=== PATIENT | male | born 1950 | race Caucasian/White ===

== ENCOUNTER 2021-11-11 10:44 | Inpatient (IN) ==
[2021-11-11] MEDS: levETIRAcetam 250 MG TABLET PO SCH (21:08)
[2021-11-11] MEDS: *HR* Metformin 500 MG TABLET PO SCH (21:08)
[2021-11-12 07:59] LABS: Basophils % 0.3 %; Eosinophils # 0.2 K/mcL (0.0-0.6); Eosinophils % 2.3 %; Hematocrit 43.1 % (37.5-50.1); Hemoglobin 14.5 g/dL (12.9-16.9); Immature Granulocytes % 1.2 % (0-4); Lymphocytes # 1.5 K/mcL (0.6-4.6); Lymphocytes % 16.7 %; Mean Corpuscular HGB Conc 33.6 g/dL (31.6-35.5); Mean Corpuscular Hemoglobin 30.1 pg (28.0-33.3); Mean Corpuscular Volume 89.6 fL (83.0-100.0); Mean Platelet Volume 9.8 fL (9.4-12.4); Monocytes # 0.6 K/mcL (0.0-1.3); Monocytes % 7.1 %; Neutrophils # 6.5 K/mcL (1.6-8.9); Platelet Count 250 K/mcL (140-400); Red Blood Count 4.81 M/mcL (4.19-5.50); Segmented Neutrophils % 72.4 %
[2021-11-12 08:16] LABS: BUN/Creatinine Ratio 20 (6-26); Blood Urea Nitrogen 20 mg/dL (8-23); Calcium 8.4 mg/dL (8.6-10.3); Carbon Dioxide 28 mEq/L (23-29); Chloride 101 mEq/L (98-107); Glucose 82 mg/dL (70-105); Osmolality,Calculated 288 (280-300); Potassium 3.9 mEq/L (3.5-5.1); Sodium 138 mEq/L (136-145); eGFR For African Americans > 60 (> 60); eGFR For Non-African Americans > 60 (> 60)
[2021-11-12] MEDS: levETIRAcetam 250 MG TABLET PO SCH ×2 (09:46→21:20)
[2021-11-12] MEDS: lisinopriL 10 MG TABLET PO SCH ×2 (09:46→09:47)
[2021-11-12] MEDS: Cyanocobalamin (B-12) 1,000 MCG TABLET PO SCH (09:46)
[2021-11-12] MEDS: Aspirin Enteric Coated 81 MG Tablet PO SCH (09:46)
[2021-11-12] MEDS: NIFEdipine XL (24 HR) 30 MG TAB.ER.24 PO SCH (09:47)
[2021-11-12] MEDS: *HR* Metformin 500 MG TABLET PO SCH ×2 (09:47→21:20)
[2021-11-12] MEDS: Cholecalciferol (D-3) 1,000 UNIT (25MCG) TABLET PO SCH (09:49)
[2021-11-13] MEDS: *HR* Enoxaparin 40 MG/0.4 ML SYRINGE SQ SCH (06:14)
[2021-11-13] MEDS: Megestrol Acetate 400 MG/10 ML UDC PO SCH (09:12)
[2021-11-13] MEDS: Multivit/Ca/Min/Fe/FA 1 TAB TABLET PO SCH (09:13)
[2021-11-13] MEDS: NIFEdipine XL (24 HR) 30 MG TAB.ER.24 PO SCH (09:13)
[2021-11-13] MEDS: Aspirin Enteric Coated 81 MG Tablet PO SCH (09:13)
[2021-11-13] MEDS: *HR* Metformin 500 MG TABLET PO SCH ×2 (09:13→20:57)
[2021-11-13] MEDS: levETIRAcetam 250 MG TABLET PO SCH ×2 (09:13→20:57)
[2021-11-13] MEDS: Cyanocobalamin (B-12) 1,000 MCG TABLET PO SCH (09:14)
[2021-11-13] MEDS: Cholecalciferol (D-3) 1,000 UNIT (25MCG) TABLET PO SCH (09:14)
[2021-11-14] MEDS: *HR* Enoxaparin 40 MG/0.4 ML SYRINGE SQ SCH (05:56)
[2021-11-14] MEDS: NIFEdipine XL (24 HR) 30 MG TAB.ER.24 PO SCH (10:07)
[2021-11-14] MEDS: Aspirin Enteric Coated 81 MG Tablet PO SCH (10:07)
[2021-11-14] MEDS: *HR* Metformin 500 MG TABLET PO SCH ×2 (10:07→20:14)
[2021-11-14] MEDS: lisinopriL 10 MG TABLET PO SCH (10:07)
[2021-11-14] MEDS: Cyanocobalamin (B-12) 1,000 MCG TABLET PO SCH (10:07)
[2021-11-14] MEDS: Multivit/Ca/Min/Fe/FA 1 TAB TABLET PO SCH (10:07)
[2021-11-14] MEDS: Cholecalciferol (D-3) 1,000 UNIT (25MCG) TABLET PO SCH (10:07)
[2021-11-14] MEDS: Megestrol Acetate 400 MG/10 ML UDC PO SCH (10:07)
[2021-11-14] MEDS: levETIRAcetam 250 MG TABLET PO SCH ×2 (10:08→20:13)
[2021-11-14] MEDS: Melatonin 3 MG TABLET PO SCH (20:14)
[2021-11-15] MEDS: *HR* Enoxaparin 40 MG/0.4 ML SYRINGE SQ SCH (06:51)
[2021-11-15] MEDS: Megestrol Acetate 400 MG/10 ML UDC PO SCH (09:15)
[2021-11-15] MEDS: NIFEdipine XL (24 HR) 30 MG TAB.ER.24 PO SCH (09:16)
[2021-11-15] MEDS: *HR* Metformin 500 MG TABLET PO SCH ×2 (09:16→20:24)
[2021-11-15] MEDS: Cyanocobalamin (B-12) 1,000 MCG TABLET PO SCH (09:16)
[2021-11-15] MEDS: lisinopriL 10 MG TABLET PO SCH (09:16)
[2021-11-15] MEDS: Cholecalciferol (D-3) 1,000 UNIT (25MCG) TABLET PO SCH (09:16)
[2021-11-15] MEDS: Multivit/Ca/Min/Fe/FA 1 TAB TABLET PO SCH (09:16)
[2021-11-15] MEDS: Aspirin Enteric Coated 81 MG Tablet PO SCH (09:16)
[2021-11-15] MEDS: levETIRAcetam 250 MG TABLET PO SCH ×2 (09:16→20:24)
[2021-11-15] MEDS ORDERED: Haloperidol Lactate 5 MG/ML VIAL IM ONE (17:24)
[2021-11-15] MEDS ORDERED: haloperidoL 1 MG TABLET PO PRN (17:30)
[2021-11-15] MEDS: Melatonin 3 MG TABLET PO SCH (20:25)
[2021-11-16] MEDS: *HR* Enoxaparin 40 MG/0.4 ML SYRINGE SQ SCH (05:48)
[2021-11-16] MEDS: Aspirin Enteric Coated 81 MG Tablet PO SCH (10:07)
[2021-11-16] MEDS: NIFEdipine XL (24 HR) 30 MG TAB.ER.24 PO SCH (10:08)
[2021-11-16] MEDS: Multivit/Ca/Min/Fe/FA 1 TAB TABLET PO SCH (10:08)
[2021-11-16] MEDS: Cyanocobalamin (B-12) 1,000 MCG TABLET PO SCH (10:08)
[2021-11-16] MEDS: levETIRAcetam 250 MG TABLET PO SCH ×2 (10:09→20:20)
[2021-11-16] MEDS: *HR* Metformin 500 MG TABLET PO SCH ×2 (10:09→20:20)
[2021-11-16] MEDS: Cholecalciferol (D-3) 1,000 UNIT (25MCG) TABLET PO SCH (10:09)
[2021-11-16] MEDS: lisinopriL 10 MG TABLET PO SCH (10:09)
[2021-11-16] MEDS: Megestrol Acetate 400 MG/10 ML UDC PO SCH (10:15)
[2021-11-16] MEDS: Melatonin 3 MG TABLET PO SCH (20:20)
[2021-11-17] MEDS: *HR* Enoxaparin 40 MG/0.4 ML SYRINGE SQ SCH (06:08)
[2021-11-17] MEDS: levETIRAcetam 250 MG TABLET PO SCH ×2 (09:26→20:32)
[2021-11-17] MEDS: NIFEdipine XL (24 HR) 30 MG TAB.ER.24 PO SCH (09:26)
[2021-11-17] MEDS: lisinopriL 10 MG TABLET PO SCH (09:26)
[2021-11-17] MEDS: Cholecalciferol (D-3) 1,000 UNIT (25MCG) TABLET PO SCH (09:26)
[2021-11-17] MEDS: Megestrol Acetate 400 MG/10 ML UDC PO SCH (09:26)
[2021-11-17] MEDS: Cyanocobalamin (B-12) 1,000 MCG TABLET PO SCH (09:26)
[2021-11-17] MEDS: Multivit/Ca/Min/Fe/FA 1 TAB TABLET PO SCH (09:26)
[2021-11-17] MEDS: Aspirin Enteric Coated 81 MG Tablet PO SCH (09:26)
[2021-11-17] MEDS: *HR* Metformin 500 MG TABLET PO SCH ×2 (09:26→20:32)
[2021-11-17] MEDS: Melatonin 3 MG TABLET PO SCH (20:32)
[2021-11-18] MEDS: *HR* Enoxaparin 40 MG/0.4 ML SYRINGE SQ SCH (06:13)
[2021-11-18] MEDS: Aspirin Enteric Coated 81 MG Tablet PO SCH (08:27)
[2021-11-18] MEDS: *HR* Metformin 500 MG TABLET PO SCH ×2 (08:27→20:05)
[2021-11-18] MEDS: NIFEdipine XL (24 HR) 30 MG TAB.ER.24 PO SCH (08:27)
[2021-11-18] MEDS: Multivit/Ca/Min/Fe/FA 1 TAB TABLET PO SCH (08:27)
[2021-11-18] MEDS: levETIRAcetam 250 MG TABLET PO SCH ×2 (08:27→20:06)
[2021-11-18] MEDS: Megestrol Acetate 400 MG/10 ML UDC PO SCH (08:28)
[2021-11-18] MEDS: Cholecalciferol (D-3) 1,000 UNIT (25MCG) TABLET PO SCH (08:28)
[2021-11-18] MEDS: lisinopriL 10 MG TABLET PO SCH (08:28)
[2021-11-18] MEDS: Cyanocobalamin (B-12) 1,000 MCG TABLET PO SCH (08:28)
[2021-11-18] MEDS: Melatonin 3 MG TABLET PO SCH (20:06)
[2021-11-19] MEDS: *HR* Enoxaparin 40 MG/0.4 ML SYRINGE SQ SCH (06:03)
[2021-11-19] MEDS: lisinopriL 10 MG TABLET PO SCH (10:11)
[2021-11-19] MEDS: Aspirin Enteric Coated 81 MG Tablet PO SCH (10:11)
[2021-11-19] MEDS: NIFEdipine XL (24 HR) 30 MG TAB.ER.24 PO SCH (10:11)
[2021-11-19] MEDS: levETIRAcetam 250 MG TABLET PO SCH ×2 (10:12→20:08)
[2021-11-19] MEDS: Cholecalciferol (D-3) 1,000 UNIT (25MCG) TABLET PO SCH (10:12)
[2021-11-19] MEDS: *HR* Metformin 500 MG TABLET PO SCH ×2 (10:12→20:08)
[2021-11-19] MEDS: Multivit/Ca/Min/Fe/FA 1 TAB TABLET PO SCH (10:12)
[2021-11-19] MEDS: Megestrol Acetate 400 MG/10 ML UDC PO SCH (10:12)
[2021-11-19] MEDS: Cyanocobalamin (B-12) 1,000 MCG TABLET PO SCH (10:13)
[2021-11-19] MEDS: Melatonin 3 MG TABLET PO SCH (20:08)
[2021-11-20] MEDS: *HR* Enoxaparin 40 MG/0.4 ML SYRINGE SQ SCH (06:17)
[2021-11-20 07:51] LABS: Hematocrit 38.2 % (37.5-50.1); Hemoglobin 12.8 g/dL (12.9-16.9); Mean Corpuscular HGB Conc 33.5 g/dL (31.6-35.5); Mean Corpuscular Hemoglobin 30.1 pg (28.0-33.3); Mean Corpuscular Volume 89.9 fL (83.0-100.0); Mean Platelet Volume 10.5 fL (9.4-12.4); Platelet Count 323 K/mcL (140-400); Red Blood Count 4.25 M/mcL (4.19-5.50); Red Cell Distribution Width 12.4 % (11.5-14.5); White Blood Count 7.7 K/mcL (4.3-11.1)
[2021-11-20 08:11] LABS: BUN/Creatinine Ratio 15 (6-26); Blood Urea Nitrogen 12 mg/dL (8-23); Calcium 8.7 mg/dL (8.6-10.3); Carbon Dioxide 25 mEq/L (23-29); Chloride 108 mEq/L (98-107); Glucose 113 mg/dL (70-105); Osmolality,Calculated 289 (280-300); Potassium 4.4 mEq/L (3.5-5.1); Sodium 139 mEq/L (136-145)
[2021-11-20] MEDS: levETIRAcetam 250 MG TABLET PO SCH ×2 (09:36→20:04)
[2021-11-20] MEDS: Multivit/Ca/Min/Fe/FA 1 TAB TABLET PO SCH (09:36)
[2021-11-20] MEDS: Aspirin Enteric Coated 81 MG Tablet PO SCH (09:36)
[2021-11-20] MEDS: NIFEdipine XL (24 HR) 30 MG TAB.ER.24 PO SCH (09:36)
[2021-11-20] MEDS: lisinopriL 10 MG TABLET PO SCH (09:36)
[2021-11-20] MEDS: Cyanocobalamin (B-12) 1,000 MCG TABLET PO SCH (09:37)
[2021-11-20] MEDS: Cholecalciferol (D-3) 1,000 UNIT (25MCG) TABLET PO SCH (09:37)
[2021-11-20] MEDS: Megestrol Acetate 400 MG/10 ML UDC PO SCH (09:37)
[2021-11-20] MEDS: *HR* Metformin 500 MG TABLET PO SCH ×2 (09:37→20:04)
[2021-11-20] MEDS: Melatonin 3 MG TABLET PO SCH (20:04)
[2021-11-21] MEDS: *HR* Enoxaparin 40 MG/0.4 ML SYRINGE SQ SCH (06:01)
[2021-11-21 07:34] VITALS: BP 107/63; PULSE 62; RESP 16; TEMP 98.2; O2SAT 95
[2021-11-21] MEDS: Multivit/Ca/Min/Fe/FA 1 TAB TABLET PO SCH (08:52)
[2021-11-21] MEDS: Cholecalciferol (D-3) 1,000 UNIT (25MCG) TABLET PO SCH (08:52)
[2021-11-21] MEDS: *HR* Metformin 500 MG TABLET PO SCH (08:53)
[2021-11-21] MEDS: lisinopriL 10 MG TABLET PO SCH (08:53)
[2021-11-21] MEDS: Megestrol Acetate 400 MG/10 ML UDC PO SCH (08:53)
[2021-11-21] MEDS: levETIRAcetam 250 MG TABLET PO SCH (08:53)
[2021-11-21] MEDS: Aspirin Enteric Coated 81 MG Tablet PO SCH (08:53)
[2021-11-21] MEDS: Cyanocobalamin (B-12) 1,000 MCG TABLET PO SCH (08:53)
[2021-11-21] MEDS: NIFEdipine XL (24 HR) 30 MG TAB.ER.24 PO SCH (08:53)
== END 2021-11-21 17:25 | disposition home or self-care (01) | DRG 178 ==
LOC: INPPIK 17:20
PROVIDERS: ADMIT Internal Medicine; ATTEND Internal Medicine